=== PATIENT | female | born 1945 | race Caucasian/White ===

== ENCOUNTER 2018-10-24 13:37 | Inpatient (IN) | payer OTHER ==
--- NOTE | 2018-10-24 14:34 | EDPHY ---
H & P Smoking Status: Never smoked <Justin Lynn S - Last Filed: 10/25/18 04:36> <Kyleigh Fragoso M - Last Filed: 10/27/18 14:39> Time Seen by Provider: 10/24/18 14:08 HPI/ROS: CHIEF COMPLAINT: Shortness of breath HISTORY OF PRESENT ILLNESS: This 73-year-old woman has been in [place] just moved here from [place] a week ago. Today she presents because her oxygen saturation at dialysis was in the 80s. She is currently end-stage renal disease on dialysis with an indwelling left subclavian catheter. She had a fistula placed surgically 6 weeks ago in [place] but has had severe left arm swelling since and was diagnosed 3 weeks ago the left upper extremity DVT. At that time she was on Eliquis for atrial fibrillation and was changed to warfarin after that diagnosis. She started getting right-sided anterior and posterior sharp chest pain with respiration yesterday, and today at dialysis was noted to be severely hypoxemic and was sent here for evaluation. She did get a full dialysis run. Denies cough or fever. Denies hemoptysis. No leg swelling. No sputum production. Symptoms moderate today. REVIEW OF SYSTEMS: Eye: The daughters noted her left eyelid was a bit more swollen this morning ENT: no sore throat Cardiac: HPI Pulmonary: HPI Abdomen: no vomiting, diarrhea, abdominal pain Musculoskeletal: Left arm swelling Skin: no rash Neuro: no headache Constitutional: no fever : no urinary symptoms A comprehensive 10 point review of systems is otherwise negative aside from elements mentioned in the history of present illness. PAST MEDICAL HISTORY: Includes end-stage renal disease on dialysis, pacemaker, breast cancer, atrial fibrillation, diabetes, hypothyroid, left upper extremity DVT Social history: Here with 2 daughters and family. General Appearance: Alert and conversant, cooperative. Eyes: No scleral icterus. She has a little bit of left eyelid edema. Pupils equal reactive extraocular motion intact. Forehead wrinkles symmetrically. ENT, Mouth: Normal mucous membranes. Respiratory: Normal respiratory effort, breath sounds equal, lungs are clear to auscultation. No rales. Cardiovascular: Regular rate and rhythm. Gastrointestinal: Abdomen is soft and non tender. Neurological: Alert, face symmetric, normal motor and sensory in extremities. Skin: Warm and dry, no rashes. Musculoskeletal: Patient has 4+ left upper extremity edema. Compartments are soft although there is quite a bit of induration. No erythema or warmth. Normal left hand motor sensory and perfusion. Psychiatric: Not agitated. Emergency Department course/MDM: Patient presents afebrile but oxygen saturation is 82% on room air arc. Combined with her right-sided chest pain and known left upper extremity clot, high suspicion for pulmonary embolism. Plan for labs to include chemistry and INR, EKG, chest x-ray, left upper extremity ultrasound. Patient does not clinically appear to have facial droop. I think her left eyelid appearance is more likely due to edema. Signed out to Fouzia at 1500 with plan as follows: IV access, check INR, chest x-ray, ensure therapeutic anticoagulation prior to leaving the ED, admission hospitalist. (Justin Lynn) Constitutional: Initial Vital Signs Temperature (C) 36.4 C 10/24/18 13:41 Heart Rate 70 10/24/18 13:41 Respiratory Rate 18 10/24/18 13:41 Blood Pressure 153/87 H 10/24/18 13:41 O2 Sat (%) 82 L 10/24/18 13:41 O2 Delivery Mode Nasal Cannula O2 (L/minute) 2 Allergies/Adverse Reactions: morphine Allergy (Verified 10/24/18 13:47) Penicillins Allergy (Verified 10/24/18 13:47) Sulfa (Sulfonamide Antibiotics) Allergy (Verified 10/24/18 13:47) Home Medications: Medication Instructions Recorded Glimepiride [Amaryl 1 MG (*)] 1 mg PO DAILY 10/24/18 Herbals/Supplements -Info Only 1 ea PO DAILY 10/24/18 Hydrocodone/APAP 5/325 [[place] 1 tab PO Q6 PRN 10/24/18 5/325 (*)] Levothyroxine [Synthroid 175 mcg 175 mcg PO DAILY06 10/24/18 (*)] Pregabalin [Lyrica 100mg (*)] 100 mg PO DAILY 10/24/18 Warfarin Sodium [Coumadin 5MG (*)] 2.5 mg PO DAILY@17 10/24/18 Medical Decision Making <Justin Lynn - Last Filed: 10/25/18 04:36> - Diagnostics Imaging: Discussed imaging studies w/ restaurant kitchen manager Radiologist <Kyleigh Fragoso - Last Filed: 10/27/18 14:39> - Diagnostics EKG Interpretation: 12-lead EKG interpreted by me; official reading is in computer system. My interpretation is ventricular paced rate 70. (Justin Lynn) Other Provider: 15:00 I assumed care of this patient from Dr. Lynn at shift change, pending testing as above. 15:45 Reviewed CXR. Evidence of cardiomegaly and increased vascular markings. 16:17 Staff have been unable to obtain IV access on this patient. Patient is requesting pain medication, has documented morphine allergy. Her daughters at bedside decline Dilaudid. Plan to administer IV fentanyl, which has worked well for her in the past. IV access obtained. Plan for labs as above. 16:[address] Linda, radiologist. DVT has resolved. 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 Plan to admit. 17:15 Dr. Deleon accepts admission for hypoxia, pulmonary congestion, left upper extremity swelling, ESRD. (Kyleigh Fragoso) - Data Points Laboratory Results: Laboratory Results 10/25/18 08:30 10/25/18 05:04 Medications Given: Hydrocodone Bitart/Acetaminophen ([place] 5/325) 1 tab PO Q6 PRN PRN Reason: Pain, Moderate Stop: 11/03/18 19:39 Last Admin: 10/27/18 14:02 Dose: 1 tab Hydromorphone HCl (Dilaudid) 0.2 - 0.4 mg IVP Q4HRS PRN PRN Reason: Pain, Severe Unable to Take PO Stop: 11/03/18 18:04 Last Admin: 10/26/18 05:10 Dose: 0.2 mg Insulin Human Lispro (Humalog Lispro) 0 unit SC TIDMEAL [place] PRN Reason: Protocol Stop: 04/23/19 07:59 Last Admin: 10/27/18 14:04 Dose: Not Given Levothyroxine Sodium (Synthroid) 175 mcg PO DAILY06 [facility] Stop: 04/23/19 05:59 Last Admin: 10/27/18 05:08 Dose: 175 mcg Oxycodone/Acetaminophen (Percocet 5/325) 1 - 2 tab PO Q4 PRN PRN Reason: Pain, Severe Able to Take PO Stop: 11/05/18 18:53 Last Admin: 10/27/18 05:08 Dose: 2 tab Pregabalin (Lyrica) 100 mg PO DAILY [facility] Stop: 04/23/19 08:59 Last Admin: 10/27/18 10:05 Dose: 100 mg Warfarin Sodium (Coumadin) 2.5 mg PO DAILY@1700 [facility] Stop: 04/24/19 16:59 Last Admin: 10/26/18 20:24 Dose: Not Given Discontinued Medications Bupivacaine HCl (Sensorcaine 0.5% Vial) Confirm Administered Dose 30 ml .ROUTE .STK-MED ONE Stop: 10/26/18 14:04 Last Admin: 10/26/18 17:59 Dose: 30 ml Fentanyl (Sublimaze) 75 mcg IVP EDNOW ONE Stop: 10/24/18 16:31 Last Admin: 10/24/18 16:34 Dose: 75 mcg Fentanyl (Sublimaze) 25 - 100 mcg IVP Q5M PRN PRN Reason: PACU, IMMEDIATE Pain control Stop: 10/26/18 17:33 Last Admin: 10/26/18 19:10 Dose: 25 mcg Furosemide (Lasix Injection) 40 mg IVP ONCE ONE Stop: 10/24/18 18:47 Last Admin: 10/24/18 20:32 Dose: 40 mg Heparin Sodium (Porcine) (Heparin Sodium) Confirm Administered Dose 50,000 unit .ROUTE .STK-MED ONE Stop: 10/26/18 14:04 Last Admin: 10/26/18 17:58 Dose: 50,000 unit Heparin Sodium (Porcine) (Heparin Lock Flush) Confirm Administered Dose 2,500 unit IVP .STK-MED ONE Stop: 10/26/18 14:04 Last Admin: 10/26/18 17:57 Dose: 2,500 unit Vancomycin HCl 1 gm/ Sodium (Chloride) 250 mls @ 250 mls/hr IV ONCALL ONE Stop: 10/26/18 16:59 Last Admin: 10/26/18 15:46 Dose: 250 mls Lactated Ringer's (Lr) 1,000 mls @ 0 mls/hr IV ONCE ONE PRN Reason: KVO Stop: 10/26/18 15:23 Last Admin: 10/27/18 08:16 Dose: Not Given Sodium Chloride (Ns) 1,000 mls @ 0 mls/hr IV ONCE ONE PRN Reason: KVO Stop: 10/26/18 15:48 Last Admin: 10/26/18 15:55 Dose: 1,000 mls Iopamidol (Isovue-M 300) Confirm Administered Dose 30 ml .ROUTE .STK-MED ONE Stop: 10/26/18 17:30 Last Admin: 10/26/18 18:06 Dose: 30 ml Iopamidol (Isovue-M 300) Confirm Administered Dose 30 ml .ROUTE .STK-MED ONE Stop: 10/26/18 17:35 Last Admin: 10/26/18 18:07 Dose: 30 ml Lidocaine HCl (Lidocaine Hcl 1%) Confirm Administered Dose 300 mg .ROUTE .STK- MED ONE Stop: 10/26/18 14:04 Last Admin: 10/26/18 18:45 Dose: Not Given Povidone Iodine (Betadine) Confirm Administered Dose 30 leia TP .STK-MED ONE Stop: 10/26/18 18:26 Last Admin: 10/26/18 18:26 Dose: 30 leia Sodium Bicarbonate (Sodium Bicarbonate) Confirm Administered Dose 50 meq .ROUTE .STK-MED ONE Stop: 10/26/18 14:04 Last Admin: 10/26/18 18:46 Dose: Not Given Warfarin Sodium (Coumadin) 2.5 mg PO DAILY@17 [facility] Stop: 04/22/19 18:59 Last Admin: 10/24/18 19:53 Dose: 2.5 mg Point of Care Test Results: Chemistry 10/25/18 10/25/18 10/24/18 12:11 08:38 19:12 POC Glucose 166 mg/dL H mg/dL 115 mg/dL H mg/dL 101 mg/dL H mg/dL (70-100) (70-100) (70-100) POC Troponin I 10/24/18 17:23 POC Glucose POC Troponin I 0.02 ng/mL ng/mL (0.00-0.08) Departure <Justin Lynn S - Last Filed: 10/25/18 04:36> <Kyleigh Fragoso - Last Filed: 10/27/18 14:39> - Departure Disposition: [facility] Inpatient Acute Clinical Impression: Swelling of left upper extremity, Hypoxemia, ESRD (end stage renal disease) Condition: Fair
--- NOTE | 2018-10-24 14:37 | CPEKG ---
Test Reason : OPEN Blood Pressure : / mmHG Vent. Rate : 070 BPM Atrial Rate : 000 BPM P-R Int : 452 ms QRS Dur : 169 ms QT Int : 466 ms P-R-T Axes : 000 -61 112 degrees QTc Int : 503 ms Ventricular-paced complexes Confirmed by Justin Lynn ([id number]) on 10/24/2018 2:36:17 PM Referred By: Justin Lynn Confirmed By:Justin Lynn
[2018-10-24] MEDS ORDERED: fentaNYL 100 MCG/2 ML INJ IVP ONE (16:30)
[2018-10-24] MEDS ORDERED: ALTEPLASE 2 MG VIAL IVP PRN (16:45)
[2018-10-24 17:32] LABS: PLATELET COUNT 160 10^3/uL (150-400)
[2018-10-24 17:43] LABS: INR 1.41 (0.83-1.16); PROTIME(PATIENT) 17.4 SEC (12.0-15.0)
[2018-10-24] MEDS ORDERED: ONDANSETRON 4 MG/2 ML VIAL IVP PRN (18:05)
[2018-10-24] MEDS ORDERED: HYDROmorphONE/DILAUDID 1 MG/ML INJ IVP PRN (18:05)
[2018-10-24] MEDS ORDERED: ONDANSETRON DISINTEGRATING 4 MG TAB PO PRN (18:05)
[2018-10-24] MEDS ORDERED: oxyCODONE IR 5 MG TAB PO PRN (18:05)
[2018-10-24] MEDS ORDERED: ACETAMINOPHEN 325 MG TAB PO PRN (18:05)
[2018-10-24] MEDS ORDERED: D50W 25 GM/50 ML SYR IVP PRN (18:14)
--- NOTE | 2018-10-24 18:14 | PDGENHP ---
<Lynn Armando - Last Filed: 10/24/18 18:59> History and Physical - Chief Complaint Shortness of breath - History of Present Illness HPI: 73 y/o female who recently moved from [place] on Tuesday presents to the emergency room s/p receiving dialysis due to shortness of breath and oxygen saturation in the 80s on room air. Reportedly, she experienced right-sided anterior and posterior chest cramping with inspiration but those symptoms have resolved. She received her full dialysis today and noted dyspneic upon exertion , alleviated with rest. Six weeks ago in [place], she had a left arm fistula placed. Three weeks ago, her left arm became very swollen and painful - she was diagnosed with a LUE DVT. She was on Eliquis initially for her atrial fibrillation but changed to warfarin. Last Tuesday, she reports her INR was 2.3. Denies nausea, vomiting, diarrhea, fever and chills. Endorses lightheadedness. She is being admitted for further diagnostic work-up and monitoring. Past Medical History 1. ESRD on Dialysis TuThSa (left indwelling subclavian catheter) 2. Atrial fibrillation 3. Pacemaker 4. Diabetes 5. Hypothyroidism 6. Left DVT UE - today's doppler reveal no DVT and fistula is patent. 7. Breast Cancer Past Surgical History 1. Thyroidectomy 2. Bilateral mastectomy s/p breast cancer 3. Multiple abdominal surgeries 4. Right knee replacements x 2 (first surgery became infected, second surgery to replace hardware with implanted "antibiotic beads" approximately 1.5-2 years ago - "antibiotics beads" dislodged and damaged her kidneys to such an extent that she now is ESRD) Social 1. Moved from [place] to [place], [place] to be closer to her two daughters who were at bedside 2. Denies illicit drug use or tobacco use. Denies alcohol use. History Information - Allergies/Home Medication List Allergies/Adverse Reactions: morphine Allergy (Verified 10/24/18 13:47) Penicillins Allergy (Verified 10/24/18 13:47) Sulfa (Sulfonamide Antibiotics) Allergy (Verified 10/24/18 13:47) Home Medications: Glimepiride [Amaryl 1 MG (*)] 1 mg PO DAILY 10/24/18 [Last Taken 10/24/18] Herbals/Supplements -Info Only 1 ea PO DAILY 10/24/18 [Last Taken Unknown] Hydrocodone/APAP 5/325 [[place] 5/325 (*)] 1 tab PO Q6 PRN 10/24/18 [Last Taken Unknown] Levothyroxine [Synthroid 175 mcg (*)] 175 mcg PO DAILY06 10/24/18 [Last Taken 07:00] Pregabalin [Lyrica 100mg (*)] 100 mg PO DAILY 10/24/18 [Last Taken 10/24/18] Warfarin Sodium [Coumadin 5MG (*)] 2.5 mg PO DAILY@17 10/24/18 [Last Taken 10/23] I have personally reviewed and updated: family history, medical history, social history, surgical history Past Medical History: See HPI list - Surgical History Additional surgical history: See HPI list - Family History Positive for: non-pertinent - Social History Smoking Status: Never smoked Alcohol Use: None Drug Use: None Review of Systems Review of Systems: ROS: 10pt was reviewed & negative except for what was stated in HPI & below Constitutional: Reports: no symptoms EENMT: Reports: no symptoms Cardiac: Reports: chest pain, lightheadedness Respiratory: Reports: shortness of breath Gastrointestinal: Reports: no symptoms Genitourinary: Reports: no symptoms Muscolosketal: Reports: muscle pain (LUE) Skin: Reports: change in color (LUE) Neurological: Reports: no symptoms Hematologic/Lymphatic: Reports: blood clots Immunologic/Allergy: Reports: other (See allergy list) Physical Exam Physical Exam: Lab data and imaging were reviewed. Case discussed with admitting physician, Dr. Nicolás Carlos. EKG: ventricular-paced CXR: Mild cardiomegaly with pulmonary venous congestion, no focal infiltrate or peripheral interstitial edema BUN/Cr: 15/1.9 Troponin 2 hrs apart: 0.035 --> 0.02 INR: 1.41 Temp Pulse Resp BP Pulse Ox 36.9 C 70 19 147/72 H 98 10/24/18 18:04 10/24/18 18:04 10/24/18 18:04 10/24/18 18:04 10/24/18 18:04 O2 (L/minute) 2.5 Constitutional: no apparent distress, appears nourished, obese Eyes: PERRL, anicteric sclera, EOMI Ears, Nose, Mouth, Throat: moist mucous membranes, hearing normal, ears appear normal, no oral mucosal ulcers Cardiovascular: systolic murmur, irregularly irregular Peripheral Pulses: 1+: dorsalis-pedis (R) (Radial +1), dorsalis-pedis (L) ( Unable to palpate radial/brachial pulse; L fistula bruit heard, thrill not felt) Respiratory: no respiratory distress, no rales or rhonchi, clear to auscultation Gastrointestinal: normoactive bowel sounds, soft, non-tender abdomen, no palpable masses Genitourinary: no bladder fullness, no bladder tenderness Skin: erythema, induration (LUE; quite edematous 3+ pitting, indurated, unable to palpate a pulse) Musculoskeletal: full muscle strength, no muscle tenderness, normal joint ROM, no joint effusions Neurologic: AAOx3, sensation intact bilaterally, CN II-XII Intact Psychiatric: interacting appropriately, not anxious, not encephalopathic, thought process linear Lymph, Heme, Immunologic: no cervical LAD, no supraclavicular LAD Lab Data & Imaging Review 10/24/18 17:17 10/24/18 15:19 WBC 9.19 10^3/uL (3.80-9.50) 10/24/18 17:17 RBC 3.52 10^6/uL (4.18-5.33) L 10/24/18 17:17 Hgb 11.0 g/dL (12.6-16.3) L 10/24/18 17:17 Hct 35.8 % (38.0-47.0) L 10/24/18 17:17 MCV 101.7 fL (81.5-99.8) H 10/24/18 17:17 MCH 31.3 pg (27.9-34.1) 10/24/18 17:17 MCHC 30.7 g/dL (32.4-36.7) L 10/24/18 17:17 RDW 14.6 % (11.5-15.2) 10/24/18 17:17 Plt Count 160 10^3/uL (150-400) 10/24/18 17:17 MPV 9.9 fL (8.7-11.7) 10/24/18 17:17 Neut % (Auto) 75.3 % (39.3-74.2) H 10/24/18 17:17 Lymph % (Auto) 12.1 % (15.0-45.0) L 10/24/18 17:17 Maury % (Auto) 7.9 % (4.5-13.0) 10/24/18 17:17 Eos % (Auto) 2.6 % (0.6-7.6) 10/24/18 17:17 Baso % (Auto) 0.8 % (0.3-1.7) 10/24/18 17:17 Nucleat RBC Rel Count 0.0 % (0.0-0.2) 10/24/18 17:17 Absolute Neuts (auto) 6.92 10^3/uL (1.70-6.50) H 10/24/18 17:17 Absolute Lymphs (auto) 1.11 10^3/uL (1.00-3.00) 10/24/18 17:17 Absolute Monos (auto) 0.73 10^3/uL (0.30-0.80) 10/24/18 17:17 Absolute Eos (auto) 0.24 10^3/uL (0.03-0.40) 10/24/18 17:17 Absolute Basos (auto) 0.07 10^3/uL (0.02-0.10) 10/24/18 17:17 Absolute Nucleated RBC 0.00 10^3/uL (0-0.01) 10/24/18 17:17 Immature Gran % 1.3 % (0.0-1.1) H 10/24/18 17:17 Immature Gran # 0.12 10^3/uL (0.00-0.10) H 10/24/18 17:17 PT 17.4 SEC (12.0-15.0) H 10/24/18 17:17 INR 1.41 (0.83-1.16) H 10/24/18 17:17 Sodium 135 mEq/L (135-145) 10/24/18 15:19 Potassium 3.7 mEq/L (3.5-5.2) 10/24/18 15:19 Chloride 100 mEq/L (97-110) 10/24/18 15:19 Carbon Dioxide 27 mEq/l (22-31) 10/24/18 15:19 Anion Gap 8 mEq/L (6-14) 10/24/18 15:19 BUN 15 mg/dL (7-23) 10/24/18 15:19 Creatinine 1.9 mg/dL (0.6-1.0) H 10/24/18 15:19 Estimated GFR 26 10/24/18 15:19 Glucose 92 mg/dL (70-100) 10/24/18 15:19 Calcium 7.7 mg/dL (8.5-10.4) L 10/24/18 15:19 POC Troponin I 0.02 ng/mL (0.00-0.08) 10/24/18 17:23 Troponin I 0.035 ng/mL (0.000-0.034) H 10/24/18 15:19 Assessment & Plan Plan: 73 y/o female with history of ESRD on Dialysis presenting to the emergency room after experiencing hypoxemia in the 80s room air during her dialysis treatment. She was able to complete dialysis in full. Dyspneic upon exertion. She was 82% when she presented to the ER and is now on 2.5 L NC oxygen sating at 99%. She recently moved from [place], flew here, to be closer to her daughters. She does not fly often. She was diagnosed with a LUE DVT after receiving a fistula. She is anticoagulated with warfarin. Afebrile and not tachycardic currently. #Acute hypoxemic respiratory failure: considering PE vs fluid overload -BNP 12,000, CXR indicate fluid - one time lasix IVP tonight and will reassess tomorrow. If no improvement, may consider VQ scan or additional lasix doses. -Cont tele and pulse ox monitoring -Possible echo tonight or tomorrow -Checking one more trop tonight #Diabetes: checking A1c. Holding glimepiride. Initiated ISS while in hospital. #Atrial fibrillation/pacemaker: anticoagulated, continue warfarin. Cont tele monitoring #ESRD: consulted nephrology. Did not speak with Dr. Flannery but consulted to set up dialysis on should she still be in the hospital. Diet: Renal Code: Full Dispo: Admit to obs VTE ppx: warfarin, SCDs <Nicolás Carlos - Last Filed: 10/24/18 19:44> History and Physical - History of Present Illness Review of Systems Review of Systems: Physical Exam Physical Exam: Temp Pulse Resp BP Pulse Ox 37.0 C 70 20 152/78 H 97 10/24/18 18:48 10/24/18 18:48 10/24/18 18:48 10/24/18 18:48 10/24/18 18:48 O2 (L/minute) 2 Lab Data & Imaging Review 10/24/18 17:17 10/24/18 15:19 WBC 9.19 10^3/uL (3.80-9.50) 10/24/18 17:17 RBC 3.52 10^6/uL (4.18-5.33) L 10/24/18 17:17 Hgb 11.0 g/dL (12.6-16.3) L 10/24/18 17:17 Hct 35.8 % (38.0-47.0) L 10/24/18 17:17 MCV 101.7 fL (81.5-99.8) H 10/24/18 17:17 MCH 31.3 pg (27.9-34.1) 10/24/18 17:17 MCHC 30.7 g/dL (32.4-36.7) L 10/24/18 17:17 RDW 14.6 % (11.5-15.2) 10/24/18 17:17 Plt Count 160 10^3/uL (150-400) 10/24/18 17:17 MPV 9.9 fL (8.7-11.7) 10/24/18 17:17 Neut % (Auto) 75.3 % (39.3-74.2) H 10/24/18 17:17 Lymph % (Auto) 12.1 % (15.0-45.0) L 10/24/18 17:17 Maury % (Auto) 7.9 % (4.5-13.0) 10/24/18 17:17 Eos % (Auto) 2.6 % (0.6-7.6) 10/24/18 17:17 Baso % (Auto) 0.8 % (0.3-1.7) 10/24/18 17:17 Nucleat RBC Rel Count 0.0 % (0.0-0.2) 10/24/18 17:17 Absolute Neuts (auto) 6.92 10^3/uL (1.70-6.50) H 10/24/18 17:17 Absolute Lymphs (auto) 1.11 10^3/uL (1.00-3.00) 10/24/18 17:17 Absolute Monos (auto) 0.73 10^3/uL (0.30-0.80) 10/24/18 17:17 Absolute Eos (auto) 0.24 10^3/uL (0.03-0.40) 10/24/18 17:17 Absolute Basos (auto) 0.07 10^3/uL (0.02-0.10) 10/24/18 17:17 Absolute Nucleated RBC 0.00 10^3/uL (0-0.01) 10/24/18 17:17 Immature Gran % 1.3 % (0.0-1.1) H 10/24/18 17:17 Immature Gran # 0.12 10^3/uL (0.00-0.10) H 10/24/18 17:17 PT 17.4 SEC (12.0-15.0) H 10/24/18 17:17 INR 1.41 (0.83-1.16) H 10/24/18 17:17 Sodium 135 mEq/L (135-145) 10/24/18 15:19 Potassium 3.7 mEq/L (3.5-5.2) 10/24/18 15:19 Chloride 100 mEq/L (97-110) 10/24/18 15:19 Carbon Dioxide 27 mEq/l (22-31) 10/24/18 15:19 Anion Gap 8 mEq/L (6-14) 10/24/18 15:19 BUN 15 mg/dL (7-23) 10/24/18 15:19 Creatinine 1.9 mg/dL (0.6-1.0) H 10/24/18 15:19 Estimated GFR 26 10/24/18 15:19 Glucose 92 mg/dL (70-100) 10/24/18 15:19 POC Glucose 101 mg/dL (70-100) H 10/24/18 19:12 Calcium 7.7 mg/dL (8.5-10.4) L 10/24/18 15:19 POC Troponin I 0.02 ng/mL (0.00-0.08) 10/24/18 17:23 Troponin I 0.035 ng/mL (0.000-0.034) H 10/24/18 15:19 NT-Pro-B Natriuret Pep 04712 pg/mL (0-125) H 10/24/18 17:17 Assessment & Plan Assessment: ESRD (end stage renal disease) (Acute) Hypoxemia (Acute) Swelling of left upper extremity (Acute) Plan: Chart reviewed, patient personally examined and case discussed with Kyleigh Armando NP. I agree with her assessment and plan above. Please see my separate note for additional details.
[2018-10-24] MEDS ORDERED: FUROSEMIDE 40 MG/4 ML VIAL IVP ONE (18:46)
[2018-10-24] MEDS ORDERED: WARFARIN SODIUM 5 MG TAB PO SCH (19:00)
--- NOTE | 2018-10-24 19:43 | HOSPPROG ---
Hospitalist Progress Note Assessment/Plan: Case discussed with Kyleigh Armando [employer]LET[employer]ENTS SCORER and I agree with plan outlined in her note with following exceptions: Briefly, 73yo F with ESRD on HD via Cabrera catheter, atrial fibrillation, recent LUE DVT on warfarin who just moved to [place] 4 days ago presents with shortness of breath. Her symptoms started on arrival to [place], where she moved from [place] to be closer to her daughter. She went to dialysis this afternoon and was noted to be hypoxic into the 80s so was sent to the ED. Exam with mild bibasilar crackles. BNP elevated at 12k. CXR consistent with mild pulmonary edema. Her INR was 1.4. Doppler US of left arm, which is swollen, shows that DVT has resolved. 1. Acute hypoxia: Suspect driven by altitude and mild pulmonary edema. We will give a dose of IV lasix this evening (she still makes urine) and assess response. I have ordered an echocardiogram. Considered PE but have alternate explanations; could consider V/Q scan if worsening. May need supplemental oxygen at discharge. 2. ESRD: Failed RUE AV fistula and recently created LUE AV fistula with clot. Dialyzing via Cabrera catheter. Alert nephrology of admission in AM. 3. Atrial fibrillation: Rate controlled on admit. [id number] at least 3, continue warfarin. 4. Indeterminate troponin: Very mild. Likely demand driven by volume overload. Down-trending. 5. Anemia: Related to renal disease. 6. SSS s/p pacemaker 7. Diabetes: SSI Dispo: Admit under observation Objective: Vital Signs Temp Pulse Resp BP Pulse Ox 37.0 C 70 20 152/78 H 97 10/24/18 18:48 10/24/18 18:48 10/24/18 18:48 10/24/18 18:48 10/24/18 18:48 Laboratory Results 10/24/18 17:17 PT 17.4 SEC (12.0-15.0) H 10/24/18 17:17 INR 1.41 (0.83-1.16) H 10/24/18 17:17 ICD10 Worksheet Patient Problems: Problems Problem Status Onset ESRD (end stage renal disease) Acute Hypoxemia Acute Swelling of left upper extremity Acute
[2018-10-24] MEDS: HYDROCODONE/APAP 5/325 TAB PO PRN (20:38)
[2018-10-25] MEDS: HYDROCODONE/APAP 5/325 TAB PO PRN ×4 (03:22→21:57)
[2018-10-25] MEDS: LEVOTHYROXINE 175 MCG TAB PO SCH (05:09)
[2018-10-25 06:18] LABS: INR 1.49 (0.83-1.16); PROTIME(PATIENT) 18.2 SEC (12.0-15.0)
--- NOTE | 2018-10-25 08:43 | HOSPPROG ---
Hospitalist Progress Note Assessment/Plan: Rose is a73yo F with ESRD on HD via Cabrera catheter, atrial fibrillation, recent LUE DVT on warfarin who just moved to [place] 4 days ago presents with shortness of breath. She is from the [place] area. First encounter, chart reviewed * Acute hypoxia -likely due to high altitude and pulmonary edema -echo shows right atrial enlargement and left atrium is severely dilated, will ask cards to see- etiology of enlargement is likely from the afib *ESRD - Failed RUE AV fistula and recently created LUE AV fistula with clot -Dialyzing via Cabrera catheter -dialysis tomorrow * Atrial fibrillation, Rate controlled -INR is subtherapeutic -will link her into the Coumadin clinic -will hold Coumadin and place her on Lovenox treatment dose sq, this can be stopped if there is any intervention. *Indeterminate troponin -minimally elevated, demand ischemia from the above * Anemia: Related to renal disease. * SSS s/p pacemaker * Diabetes: SSI * left arm swelling, severe -ultrasound shows AV fistula that is widely patent -high-grade stenosis left innominate vein causing decreased outflow fro the left arm arterial venous fistula *plan -will ask Dr De Leon to see, reviewed her care w Dr Browning. She will require another midnight stay to address all the above. Subjective: Rose is tearful and frustrated about her health. She is not c/o pain. Objective: Vital Signs Temp Pulse Resp BP Pulse Ox 36.7 C 70 20 130/74 H 97 10/25/18 03:23 10/25/18 03:23 10/25/18 03:23 10/25/18 03:23 10/25/18 03:23 Laboratory Results 10/25/18 05:04 10/24/18 10/25/18 10/26/18 05:59 05:59 05:59 Intake Total 200 Balance 200 PT 18.2 SEC (12.0-15.0) H 10/25/18 05:04 INR 1.49 (0.83-1.16) H 10/25/18 05:04 - Physical Exam Constitutional: appears nourished, obese, uncomfortable Eyes: PERRL Ears, Nose, Mouth, Throat: hearing normal Cardiovascular: irregularly irregular Respiratory: no respiratory distress, reduced air movement Skin: warm, other (left arm warm, but has significant swelling, skin is tight, has pulses and can feel the AV graft) Neurologic: AAOx3 Psychiatric: interacting appropriately ICD10 Worksheet Patient Problems: Problems Problem Status Onset ESRD (end stage renal disease) Acute Hypoxemia Acute Swelling of left upper extremity Acute
[2018-10-25 08:50] LABS: PLATELET COUNT 150 10^3/uL (150-400)
[2018-10-25] MEDS: PREGABALIN 100 MG CAP PO SCH (08:54)
[2018-10-25] MEDS: INSULIN LISPRO 100 UNIT/ML SC SCH ×3 (09:06→18:17)
--- NOTE | 2018-10-25 11:47 | ECHO ---
[email or web address] [address] [address] Main: [phone] Fax: Transthoracic Echocardiogram Name: ADIN MCNALLY MR#: [id number] Study Date: 10/25/2018 Study Time: 10:36 AM Date of : 1945 Age: 73 year(s) Height: 167.6 cm (66 in.) Weight: 90.72 kg (200 lb.) BSA: 2 m2 Gender: Female Examination: Echo Indication: eval valves, ventricular function Image Quality: Adequate Contrast: Requested by: Nicolás Carlos BP: 137 mmHg/95 mmHg Heart Rate: Rhythm: Indication: eval valves, ventricular function Procedure Staff Skin Lifter Bacon: Jessica Mujica RD Reading Physician: Rod Alcaraz MD Requesting Provider: Conclusions: No pericardial effusion. Ejection fraction 54%. Pacemaker in the right heart. Biatrial enlargement. Mild to moderate mitral regurgitation. Mild aortic regurgitation. Moderate tricuspid regurgitation with elevated right ventricular systolic pressure 48 mm of mercury. Measurements: Chambers Valvular Assessment AV/MV Valvular Assessment TV/PV Normal Normal Normal Name Value Range Name Value Range Name Value Range Ao Sowmya (2D): 2.9 cm (1.4 cm-2.6 AV Vmax: 2.45 m/s (1 m/s-1.7 TR Vmax: 3.26 mm/s ( - ) cm) m/s) TR PGmax: 43 mmHg ( - ) IVSd (2D): 1.0 cm (0.6 cm-1.1 AV maxP mmHg ( - ) syst. PAP: 48 mmHg ( - ) cm) AV meanP mmHg ( - ) PV Vmax: 1.14 m/s (0.6 m/s-0.9 LVDd (2D): 5.1 cm (3.9 cm-5.3 MILAD (VTI): 1.0 cm ( - ) m/s) cm) MV E Vmax: 1.19 m/s ( - ) PV PGmax: 5 mmHg ( - ) LVDs (2D): 3.2 cm (2.1 cm-4 MV PHT: 0.067 s ( - ) cm) MVA (PHT): 3.3 s ( - ) LVPWd (2D): 1.1 cm ( - ) LVOTd 1.9 cm 1.9 cm mm LVEF (MOD4): 54 % (>=55 %) RVDd(2D): 3.7 cm (1.9 cm-3.8 cmmm) Continued Measurements: Chambers Valvular Assessment AV/MV Valvular Assessment TV/PV Name Value Name Value Name Value LADs: 4.5 cm MV DecTime: 246 m/s CVP (est.): 5 mmHg LADs Lon.1 cm LA Area: 34.4 cm2 LA Volume: 125 ml Patient: ADIN MCNALLY Study Date: 10/25/2018 Page 1 of 2 10:36 AM LA Volume Index: 62.5 ml/m2 RA Area: 25.8 cm2 Additional Vessels Name Value Ao Ascendin.6 cm Findings: Left Ventricle: Normal size left ventricle. No LV hypertrophy. Normal global systolic LV function. EF is 54 %. No regional wall motion abnormality. Right Ventricle: Normal size right ventricle. Normal RV function. There is a pacemaker lead noted in the right ventricle. Left Atrium: The left atrium is severely dilated. Right Atrium: Right atrial enlargement. Mitral Valve: The mitral valve is normal in appearance and function. Mild to moderate mitral regurgitation. No mitral stenosis is present. Aortic Valve: The aortic valve is tri-leaflet. Aortic sclerosis is present. Mild aortic valve regurgitation is present. Mild calcific aortic valve stenosis. Tricuspid Valve: The tricuspid valve is normal in appearance and function. Moderate tricuspid regurgitation is present. The pulmonary artery pressure is moderately increased. Right ventricular systolic pressure measures 48mmHg. Pulmonic Valve: The pulmonic valve is normal in appearance and function. Trivial pulmonic valve regurgitation. Aorta: The aorta is normal. Normal size aortic root measuring 2.9 cm. Normal size ascending aorta measuring 3.6 cm. IVC: The IVC is normal sized. Pericardium: No pericardial effusion. (No Signature Object) Patient: ADIN MCNALLY Study Date: 10/25/2018 Page 2 of 2 10:36 AM [id number]
--- NOTE | 2018-10-25 14:49 | GCON ---
[f rep st] CONSULTATION DATE OF CONSULTATION: 10/25/2018 REASON FOR CONSULTATION: Opinion regarding end-stage kidney failure. HISTORY OF PRESENT ILLNESS: August is a very pleasant 73-year-old female who was living in [place]; however, she and her are getting , and she moved to [place] to be closer with her 2 daughters and grandchildren. Ms. Koch arrived just this past week. She had dialysis at the [facility]. Was noted to have a markedly edematous left arm which is where her AV fistula has been placed. She was sent to the emergency department after dialysis yesterday for furt her evaluation and management. Currently, she says she feels reasonably okay. She has not been having fevers, chills, nausea, vomit ing, chest pain. She does have some shortness of breath, [place] She has not had hemoptysis, hematemesis, epistaxis, abdominal pain, diarrhea, constipatio n, melena, hematochezia, blurry vision, double vision, headache, orthopnea, paroxysmal nocturnal dysp agatha, palpitations or syncope. PAST MEDICAL HISTORY: Significant for: 1. End-stage kidney failure on 3 times weekly dialysis. It appears that her end-stage kidney failur e is due to acute kidney injury that did not resolve after sepsis syndrome. 2. Diabetes mellitus type 2. 3. Hypothyroidism. 4. Recent AV fistula placement in her left arm. 5. Failed AV fistula in the right arm. 6. Anticoagulation for a history of DVT. 7. Neuropathic pain. 8. Bilateral mastectomy. 9. A history of breast cancer. 10. Status post chest radiation. 11. Status post pacemaker initially on the left and subsequently placed on the right. 12. Anemia. 13. Right total knee arthroplasty. ALLERGIES: Penicillin, morphine and sulfa. MEDICATIONS: 1. Warfarin 2.5 mg daily. 2. Glimepiride 1 mg daily. 3. Synthroid 175 mcg daily. 4. Lyrica 100 mg daily. FAMILY HISTORY: Not contributory. SOCIAL HISTORY: She denies tobacco, alcohol, intravenous or recreational drugs. She recently moved from [place] to be closer to family. REVIEW OF SYSTEMS: A complete 12-point review of systems was performed. Pertinent positives and neg atives as per the previous sections. PHYSICAL EXAMINATION: VITAL SIGNS: Blood pressure 137/95, pulse 70, respirations 18, temperature 36 .7. GENERAL: She is awake, alert, cooperative, in no acute distress. HEENT: Pupils are reactive t o light. Extraocular movements are intact. Mucous membranes are moist. NECK: Thick. No lymphaden opathy. HEART: Regular. Grade 1/6 systolic murmur. No rub, no S3. LUNGS: No rales, rhonchi or w heezes. ABDOMEN: Bowel sounds are positive. She is obese, nontender, nondistended. EXTREMITIES: Positive for edema in her lower extremities bilaterally. Her right upper extremity has minimal edema . Her left upper extremity is massively edematous with a developing left upper arm arteriovenous fis per that has a good bruit and thrill. She has a tunneled hemodialysis catheter in her left chest as well. LABORATORY: Serum sodium 136, potassium 3.9, chloride 104, CO2 21, BUN 20, creatinine 2.5, glucose 9 6, calcium 7.3. Troponin 0.034. BNP 12,000. Hemoglobin A1c 6.2. WBC 8, hemoglobin 10.5, hematocri t 34, platelet count 150,000. INR 1.40. IMPRESSION: 1. End-stage kidney failure on 3 times weekly dialysis, recently moved from [place] to [place]. 2. Shortness of breath. Part of it likely is volume overload. 3. Hypertension, which is under decent control. 4. Massively edematous left upper arm, which is the arm of her new AV fistula that was placed in mid August 2018, it is also the side that her tunneled hemodialysis catheter is placed. Also, she had a pacemaker on that side for 10 years. RECOMMENDATIONS: 1. Will plan on doing dialysis tomorrow. 2. I have discussed things with the Hospital Service, Surgery will be coming by to take a look at he r arm and fistula. She may need a fistulogram, she may need a look at her central vasculature, I danii pect that she has some her blockage due to her tunneled dialysis catheter, also she could have some s carring from her pacemaker that was on that side for 10 years. Thank you for allowing me to participate in the care of your patient, Rose Koch. If there are an y questions, please do not hesitate to contact us. We will be following along with you. /[id number]/MODL
--- NOTE | 2018-10-25 15:18 | SOAPPROG ---
JI Progress Note Assessment/Plan: Assessment/Plan: 73 Y F c ESRD on HD, afib, s/p AVF creation in [place] 6 weeks ago, s/p DVT three weeks ago now on coumadin, +LUE swelling since Decemeber, now worsened in last 24 hours. Consult note to follow. US showing stenosis of innominate vein. AVF is patent and no DVT present now. Suspect stenosis could be related to tunneled L neck catheter. Plan to have HD, then plan to remove neck catheter. Will need another catheter until AVF matures. This complicated by R pacemaker with subclavian wires. Per Dr. De Leon, can try for IJ access on right side. If not possible, may need femoral access. May still need IR intervention with venoplasty and possibly stent after removal of neck catheter to improve venous outflow of her arterialized LUE. 10/25/18 15:13 Objective: Vital Signs Temp Pulse Resp BP Pulse Ox 36.8 C 71 18 142/85 H 94 10/25/18 12:00 10/25/18 12:00 10/25/18 12:00 10/25/18 12:00 10/25/18 12:00 Laboratory Results 10/25/18 08:30 10/25/18 05:04 10/24/18 10/25/18 10/26/18 05:59 05:59 05:59 Intake Total 200 Balance 200 PT 18.2 SEC (12.0-15.0) H 10/25/18 05:04 INR 1.49 (0.83-1.16) H 10/25/18 05:04 ICD10 Worksheet Patient Problems: Problems Problem Status Onset ESRD (end stage renal disease) Acute Hypoxemia Acute Swelling of left upper extremity Acute
--- NOTE | 2018-10-25 16:14 | ASMTCMCOM ---
CM Note CM Note Notes: Pt is a 73 y/o female admitted for shortness of breath. Pt recently relocated from [place] to be closer to her daughters and grandchildren. Pt is currently getting dialysis at [facility]. Pt recieves dialysis , and Tuesday 8:05AM. Nephrology is following this case. Needs are TBD at this time. No therapies ordered. CM to follow. Plan: TBD Date Signed: 10/25/2018 04:13 PM Electronically Signed By:SHAE Medina
--- NOTE | 2018-10-25 16:36 | PDCARCONS ---
Cardiology Consult Reason for Consult: Atrial Fibrillation. Biatrial enlargement Chief Complaint: Short of Breath on admission Requesting Physician: Glenny Lawson [facility]- Hospitalist History of Present Illness: Rose recently moved from [place] to [facility] on Tuesday10/21/18 to be near her daughters. She has history of Atrial Fibrillation, End stage Renal Disease, and had dialysis on Tuesday10/24/18 and became very SOB after the dialysis. She did have a brief episode of chest cramp-like pain briefly that did subside quickly. She had a Left arm fistula placed in [place] 6 weeks ago for dialysis and 3 weeks ago developed a Left upper arm DVT while on Eliquis. She was then switched to Warfarin for anticoagulation. Her Left arm remains markedly swollen. She is being followed by Nephrology, and Vascular Surgery has been asked to consult. At time of my visit she is comfortable with no SOB , chest pain, or dizziness/lightheadedness. History Information - Allergies/Home Medication List Allergies/Adverse Reactions: morphine Allergy (Verified 10/24/18 13:47) Penicillins Allergy (Verified 10/24/18 13:47) Sulfa (Sulfonamide Antibiotics) Allergy (Verified 10/24/18 13:47) Home Medications: Glimepiride [Amaryl 1 MG (*)] 1 mg PO DAILY 10/24/18 [Last Taken 10/24/18] Herbals/Supplements -Info Only 1 ea PO DAILY 10/24/18 [Last Taken Unknown] Hydrocodone/APAP 5/325 [Plainfield 5/325 (*)] 1 tab PO Q6 PRN 10/24/18 [Last Taken Unknown] Levothyroxine [Synthroid 175 mcg (*)] 175 mcg PO DAILY06 10/24/18 [Last Taken 07:00] Pregabalin [Lyrica 100mg (*)] 100 mg PO DAILY 10/24/18 [Last Taken 10/24/18] Warfarin Sodium [Coumadin 5MG (*)] 2.5 mg PO DAILY@17 10/24/18 [Last Taken 10/23] I have personally reviewed and updated: family history, medical history, social history, surgical history Past Medical History: - Past Medical History atrial fibrillation, diabetes type 2, ESRD Additional medical history: Pacemaker. Left upper arm DVT. Breast Cancer. Hypothyroidism - Surgical History Reports: mastectomy (Bilateral s/p Breast Cancer), thyroid surgery Additional surgical history: Right knee replacement x 2 - Social History Smoking Status: Never smoked Alcohol Use: None Drug Use: None Cardiac History - Cardiac History Past Cardiac History: PACEMAKER, OTHER (Atrial Fibrillation) Cardiac Risk Factors: diabetes mellitus, age > 65 Age in Years: 65-74 Sex: Female Congestive Heart Failure History: No Stroke/TIA/Thromboembolism History: Yes Vascular Disease History: Yes Diabetes Mellitus: Yes Physical Exam Physical Exam: Temp Pulse Resp BP Pulse Ox 36.8 C 71 18 142/85 H 94 10/25/18 12:00 10/25/18 12:00 10/25/18 12:00 10/25/18 12:00 10/25/18 12:00 O2 (L/minute) 2 Constitutional: no apparent distress Eyes: PERRL Ears, Nose, Mouth, Throat: hearing normal, ears appear normal Cardiovascular: regular rate and rhythym, systolic murmur, edema (left arm swelling), No JVD Peripheral Pulses: 2+: carotid (R), carotid (L), dorsalis-pedis (R), dorsalis- pedis (L) Respiratory: no respiratory distress, reduced air movement, No respiratory distress Gastrointestinal: soft, non-tender abdomen Skin: warm Neurologic: AAOx3, No numbness Psychiatric: not anxious Lab and Imaging 10/27/18 04:45 10/27/18 04:45 WBC 7.98 10^3/uL (3.80-9.50) 10/25/18 08:30 RBC 3.36 10^6/uL (4.18-5.33) L 10/25/18 08:30 Hgb 10.5 g/dL (12.6-16.3) L 10/25/18 08:30 Hct 34.3 % (38.0-47.0) L 10/25/18 08:30 MCV 102.1 fL (81.5-99.8) H 10/25/18 08:30 MCH 31.3 pg (27.9-34.1) 10/25/18 08:30 MCHC 30.6 g/dL (32.4-36.7) L 10/25/18 08:30 RDW 14.6 % (11.5-15.2) 10/25/18 08:30 Plt Count 150 10^3/uL (150-400) 10/25/18 08:30 MPV 9.9 fL (8.7-11.7) 10/25/18 08:30 Neut % (Auto) 73.2 % (39.3-74.2) 10/25/18 08:30 Lymph % (Auto) 13.7 % (15.0-45.0) L 10/25/18 08:30 Morton % (Auto) 8.4 % (4.5-13.0) 10/25/18 08:30 Eos % (Auto) 3.6 % (0.6-7.6) 10/25/18 08:30 Baso % (Auto) 0.5 % (0.3-1.7) 10/25/18 08:30 Nucleat RBC Rel Count 0.0 % (0.0-0.2) 10/25/18 08:30 Absolute Neuts (auto) 5.84 10^3/uL (1.70-6.50) 10/25/18 08:30 Absolute Lymphs (auto) 1.09 10^3/uL (1.00-3.00) 10/25/18 08:30 Absolute Monos (auto) 0.67 10^3/uL (0.30-0.80) 10/25/18 08:30 Absolute Eos (auto) 0.29 10^3/uL (0.03-0.40) 10/25/18 08:30 Absolute Basos (auto) 0.04 10^3/uL (0.02-0.10) 10/25/18 08:30 Absolute Nucleated RBC 0.00 10^3/uL (0-0.01) 10/25/18 08:30 Immature Gran % 0.6 % (0.0-1.1) 10/25/18 08:30 Immature Gran # 0.05 10^3/uL (0.00-0.10) 10/25/18 08:30 PT 18.2 SEC (12.0-15.0) H 10/25/18 05:04 INR 1.49 (0.83-1.16) H 10/25/18 05:04 Sodium 136 mEq/L (135-145) 10/25/18 05:04 Potassium 3.9 mEq/L (3.5-5.2) 10/25/18 05:04 Chloride 104 mEq/L (97-110) 10/25/18 05:04 Carbon Dioxide 21 mEq/l (22-31) L 10/25/18 05:04 Anion Gap 11 mEq/L (6-14) 10/25/18 05:04 BUN 20 mg/dL (7-23) 10/25/18 05:04 Creatinine 2.5 mg/dL (0.6-1.0) H 10/25/18 05:04 Estimated GFR 10/25/18 05:04 Glucose 96 mg/dL (70-100) 10/25/18 05:04 POC Glucose 166 mg/dL (70-100) H 10/25/18 12:11 Hemoglobin A1c 6.2 % (4.0-6.0) H 10/24/18 17:17 Estim Average Glucose 131 mg/dL (68-126) H 10/24/18 17:17 Calcium 7.3 mg/dL (8.5-10.4) L 10/25/18 05:04 POC Troponin I 0.02 ng/mL (0.00-0.08) 10/24/18 17:23 Troponin I 0.034 ng/mL (0.000-0.034) 10/24/18 21:24 NT-Pro-B Natriuret Pep 93454 pg/mL (0-125) H 10/24/18 17:17 A/P Assessment: SOB on admission related to fluid overload. IV Lasix given in ER once in the setting of ESRD. Her BNP was 12,000. Trop normal at 0.034. CXR showed mild Cardiomegaly, mild Pulmonary congestion, with no focal or peripheral interstitial edema. Nephrology will follow related to her fluid overload due to her ESRD. Echocardiogram showed biatrial enlargement likely related to her chronic atrial fibrillation. EF is normal at 56%. Atrial Fibrillation is chronic and she is anticoagulated on Warfarin with goal 2 to 3. She failed Eliquis, developing a DVT of the Left arm. Dialysis - Due to Renal failure due to complication of knee surgery with Antibiotic beads migrating into system. The A-V fistula for Dialysis had been placed in Left arm 3 weeks prior. She had noted increased swelling of the left arm since that time. Vascular surgery evaluating for possible need to adjust placement of fistula. Pacemaker was placed for treatment of atrial fibrillation. PLAN: Pacemaker monitoring will be established for out patient follow up. Atrial Fibrillation monitoring and management will be continued on outpatient status. She will need Referral to [facility]. We will follow along as needed during this hospitalization. Thank you for asking us to be part of this patients care.
--- NOTE | 2018-10-25 17:05 | GCON ---
[f rep st] CONSULTATION GENERAL AND VASCULAR SURGERY CONSULTATION REASON FOR CONSULT: Left upper extremity arteriovenous fistula in place with recent DVT, and now wit h significant left arm swelling. HISTORY OF PRESENT ILLNESS: The patient is a 73-year-old female, originally from [place], who recently moved here from [place] on Tuesday and presented to the emergency department complaining of shortne ss of breath after receiving dialysis. We have been asked to see her for evaluation of her left arm swelling. She reports having what appears to be a brachiocephalic left upper extremity AV fistula pl aced in [place] about 6 weeks ago. Prior to this, she had a neck catheter urgently placed for unreco gnized renal failure. Three weeks after her AV fistula surgery, she developed a DVT in that same arm , and was initially on Eliquis and then put on Coumadin. She says her arm has been swollen since mid August, but suddenly worsened in the last 24 hours. It is now heavy and difficult to lift. She i s no longer able to make fists. Her arm is heavy, but not particularly painful, and her sensation is intact. She does have a palpable radial pulse, and aside from limitations from swelling, she has go od design eng strength. The patient has a right-sided pacemaker in place. Again, she has a left-sided tunneled neck catheter in place. An ultrasound shows a patent arteriovenous fistula with no evidence of DVT with high-grad e stenosis of the left innominate vein. DICTATION ENDS HERE. /[id number]/MODL
--- NOTE | 2018-10-25 17:15 | SOAPPROG ---
JI Progress Note Assessment/Plan: Assessment: 71-YEAR-OLD FEMALE WITH CHRONIC RENAL FAILURE. RECENT THE LEFT ARM BRACHIAL CEPHALIC AV FISTULA WHICH IS FLOWING WELL HOWEVER SHE HAS MASSIVE LEFT ARM EDEMA AND SHE HAS A LEFT JUGULAR PALINDROME CATHETER INNOMINATE VEIN IS BEEN SHOWN TO HAVE A STRICTURE ON ULTRASOUND OR VENOGRAPHY ARM SWELLING IS BEEN GOING ON SINCE AUGUST BUT APPARENTLY HAS GOTTEN WORSE OVER THE LAST 2 3 DAYS PROBABLE A NOMINAL AT OBSTRUCTION SECONDARY TO STENOSIS AND A CATHETER IN PLACE WITH A HYPER FLOW SITUATION FROM THE AV FISTULA WILL LIKELY NEED TO HAVE THE CATHETER REMOVED AFTER DIALYSIS IN THE A.M. AND ATTEMPT TO PLACE CATHETER ON THE RIGHT NECK FOR DIALYSIS. IT WILL BE SOME TIME BEFORE THE ARM SWELLING IS GONE ENOUGH TO BE ABLE TO USE HER AV FISTULA WHICH APPEARS TO BE QUITE STRONG Plan: IN THE A.M. AFTER DIALYSIS PALINDROME REMOVAL AND PLACEMENT ON THE RIGHT IJ SIDE/RISKS AND OPTIONS BEEN FULLY DISCUSSED AND SHE WISHED TO PROCEED 10/25/18 17:12 Objective: Vital Signs Temp Pulse Resp BP Pulse Ox 36.8 C 71 18 142/85 H 94 10/25/18 12:00 10/25/18 12:00 10/25/18 12:00 10/25/18 12:00 10/25/18 12:00 Laboratory Results 10/25/18 08:30 10/25/18 05:04 10/24/18 10/25/18 10/26/18 05:59 05:59 05:59 Intake Total 200 Balance 200 PT 18.2 SEC (12.0-15.0) H 10/25/18 05:04 INR 1.49 (0.83-1.16) H 10/25/18 05:04 ICD10 Worksheet Patient Problems: Problems Problem Status Onset ESRD (end stage renal disease) Acute Hypoxemia Acute Swelling of left upper extremity Acute
--- NOTE | 2018-10-25 18:03 | PDMN ---
Medical Necessity Medical necessity: Change to inpt as of 10/25/18 @ 15:57, meets inpt criteria per MD order and MCG M-325, Renal Failure, Chronic, A-3 days. 73 y/o w/ESRD on HD via Cabrera cath, afib, recent LUE DVT (LUE arteriovenous fistula in place), presented w/SOB, admitted w/acute hypoxia, ESRD, and severe L arm swelling. US shows stenosis of innominate vein, possibly r/t tunneled L neck catheter. Surg consult: Pt will have HD tomorrow and then neck catheter to be removed and will require new catheter until AVF matures, complicated by R PPM w/subclavian wires. May also need IR intervention w/venoplasty and poss stent after removal of neck catheter. Est LOS>2MN for ongoing management of above.
[2018-10-25] MEDS ORDERED: ENOXAPARIN 100 MG/ML SYR SC SCH (21:00)
[2018-10-26 05:53] LABS: PLATELET COUNT 159 10^3/uL (150-400)
[2018-10-26] MEDS: LEVOTHYROXINE 175 MCG TAB PO SCH (06:22)
[2018-10-26] MEDS: INSULIN LISPRO 100 UNIT/ML SC SCH ×4 (07:44→20:21)
[2018-10-26] MEDS ORDERED: VANCOMYCIN HCL/NORMAL SALINE 250 ML IV ONE (08:00)
[2018-10-26] MEDS ORDERED: VANCOMYCIN 1 GM in NS 250 ML IV ONE ×2 (08:00→16:00)
--- NOTE | 2018-10-26 11:39 | SOAPPROG ---
JI Progress Note Assessment/Plan: Assessment/plan: 73 y/o F with chronic renal failure admitted with acute L arm swelling. US shows stricture in innominate vein. Plan for surgery today after dialysis to remove current L neck catheter and place new palindrome catheter in R IJ. Neck u/s ordered prior to surgery to assess R IJ. All risks and options discussed and pt wishes to proceed. Pt seen by Dr. De Leon. 10/26/18 11:36 Objective: Vital Signs Temp Pulse Resp BP Pulse Ox 36.6 C 70 20 142/66 H 90 L 10/26/18 04:00 10/26/18 04:00 10/26/18 04:00 10/26/18 04:00 10/26/18 04:00 Laboratory Results 10/26/18 04:50 10/26/18 04:50 PT 18.2 SEC (12.0-15.0) H 10/25/18 05:04 INR 1.49 (0.83-1.16) H 10/25/18 05:04 ICD10 Worksheet Patient Problems: Problems Problem Status Onset ESRD (end stage renal disease) Acute Hypoxemia Acute Swelling of left upper extremity Acute
[2018-10-26] MEDS: PREGABALIN 100 MG CAP PO SCH (11:41)
[2018-10-26] MEDS: HYDROCODONE/APAP 5/325 TAB PO PRN ×2 (12:01→20:10)
--- NOTE | 2018-10-26 12:17 | HOSPPROG ---
Hospitalist Progress Note Assessment/Plan: Rose is a73yo F with ESRD on HD via Cabrera catheter, atrial fibrillation, recent LUE DVT on warfarin who just moved to [place] 4 days ago presents with shortness of breath. She is from the [place] area. * left arm swelling, severe -ultrasound shows AV fistula that is widely patent -high-grade stenosis left innominate vein causing decreased outflow fro the left arm arterial venous fistula -surgery today after dialysis to remove current L neck catheter and place new palindrome catheter in R IJ. -Neck u/s ordered prior to surgery to assess R IJ. * Acute hypoxia -resolved -echo shows right atrial enlargement and left atrium is severely dilated -appreciate cardiology seeing Rose *ESRD - Failed RUE AV fistula and recently created LUE AV fistula with clot -Dialyzing via Cabrera catheter -dialysis today * Atrial fibrillation, Rate controlled -INR is subtherapeutic -resuming Coumadin this evening, pharmacy to dose *Indeterminate troponin -minimally elevated, demand ischemia from the above * Anemia: Related to renal disease. * SSS s/p pacemaker * Diabetes: SSI *plan: to go to OR today w Dr De Leon, resume Coumadin this evening. Reviewed her care w Dr De Leon, appreciate his involvement Subjective: Rose is very hopeful about her care. Her left arm has become more painful. Objective: Vital Signs Temp Pulse Resp BP Pulse Ox 36.6 C 83 20 177/88 H 91 L 10/26/18 04:00 10/26/18 12:04 10/26/18 12:04 10/26/18 12:04 10/26/18 12:04 Laboratory Results 10/26/18 04:50 10/26/18 04:50 PT 18.2 SEC (12.0-15.0) H 10/25/18 05:04 INR 1.49 (0.83-1.16) H 10/25/18 05:04 - Physical Exam Constitutional: appears nourished, obese, uncomfortable Eyes: PERRL Ears, Nose, Mouth, Throat: hearing normal Cardiovascular: irregularly irregular Respiratory: no respiratory distress Gastrointestinal: normoactive bowel sounds Skin: warm, other (left arm w signigicant swelling, skin tight) Neurologic: AAOx3 Psychiatric: interacting appropriately ICD10 Worksheet Patient Problems: Problems Problem Status Onset ESRD (end stage renal disease) Acute Hypoxemia Acute Swelling of left upper extremity Acute
[2018-10-26] MEDS ORDERED: NA BICARBONATE 50 MEQ/50 ML VIAL ONE (14:03)
[2018-10-26] MEDS ORDERED: HEPARIN 50,000 UNIT/10 ML VIAL ONE (14:03)
[2018-10-26] MEDS ORDERED: BUPIVACAINE 0.5% 30 ML SDV ONE (14:03)
[2018-10-26] MEDS ORDERED: LIDOCAINE 1% 300 MG/30 ML SDV ONE (14:03)
[2018-10-26] MEDS ORDERED: LR 1,000 ML IV ONE (15:22)
[2018-10-26] MEDS ORDERED: NS 1,000 ML IV ONE (15:47)
[2018-10-26] MEDS ORDERED: WARFARIN SODIUM 5 MG TAB PO ONE (16:00)
--- NOTE | 2018-10-26 16:15 | PDANEPAE ---
ANE History of Present Illness here for palindrome cath placemement ANE Past Medical History - Cardiovascular History Hx Hypertension: Yes Hx Arrhythmias: Yes Hx Chest Pain: No Hx Coronary Artery / Peripheral Vascular Disease: No Hx CHF / Valvular Disease: Yes Hx Palpitations: No - Pulmonary History Hx COPD: No Hx Asthma/Reactive Airway Disease: No Hx Recent Upper Respiratory Infection: No Hx Oxygen in Use at Home: No Hx Sleep Apnea: No Sleep Apnea Screening Result - Last Documented: Negative - Endocrine History Hx Diabetes: Yes - Renal History Hx Renal Disorders: Yes Renal History Comment: ESRD req HD - Liver History Hx Hepatic Disorders: No - Neurological & Psychiatric Hx Hx Neurological and Psychiatric Disorders: No - Chronic Pain History Chronic Pain: No ANE Review of Systems Review of systems is: negative Review of Systems: - Exercise capacity Exercise capacity: <4 METS ANE Patient History - Allergies Allergies/Adverse Reactions: morphine Allergy (Verified 10/24/18 13:47) Penicillins Allergy (Verified 10/24/18 13:47) Sulfa (Sulfonamide Antibiotics) Allergy (Verified 10/24/18 13:47) - Home Medications Home Medications: Glimepiride [Amaryl 1 MG (*)] 1 mg PO DAILY 10/24/18 [Last Taken 10/24/18] Herbals/Supplements -Info Only 1 ea PO DAILY 10/24/18 [Last Taken Unknown] Hydrocodone/APAP 5/325 [Eastern 5/325 (*)] 1 tab PO Q6 PRN 10/24/18 [Last Taken Unknown] Levothyroxine [Synthroid 175 mcg (*)] 175 mcg PO DAILY06 10/24/18 [Last Taken 07:00] Pregabalin [Lyrica 100mg (*)] 100 mg PO DAILY 10/24/18 [Last Taken 10/24/18] Warfarin Sodium [Coumadin 5MG (*)] 2.5 mg PO DAILY@17 10/24/18 [Last Taken 10/23] - NPO status NPO Status: no food or drink >8 hours NPO Since - Liquids (Date): 10/25/18 NPO Since - Liquids (Time): 23:59 NPO Since - Solids (Date): 10/25/18 NPO Since - Solids (Time): 18:00 - Smoking Hx Smoking Status: Never smoked - Alcohol Use Alcohol Use: None ANE Labs/Vital Signs - Labs Result Diagrams: 10/26/18 04:50 10/26/18 04:50 - Vital Signs Vital Signs: reviewed preoperatively; see RN documention for details Blood Pressure: 174/143 Heart Rate: 70 Respiratory Rate: 16 O2 Sat (%): 92 Height: 167.64 cm Weight: 100.5 kg ANE Physical Exam - Airway Neck exam: FROM Mallampati Score: Class 1 Mouth exam: dentures - Pulmonary Pulmonary: no respiratory distress - Cardiovascular Cardiovascular: regular rate and rhythym - ASA Status ASA Status: III ANE Anesthesia Plan Anesthesia Plan: GA w LMA
[2018-10-26] MEDS ORDERED: ONDANSETRON 4 MG/2 ML VIAL IVP PRN (16:33)
[2018-10-26] MEDS ORDERED: NALOXONE HCL 0.4 MG/ML INJ IVP PRN (16:33)
[2018-10-26] MEDS ORDERED: ALBUTEROL 3 ML DEYVIAL IH PRN (16:33)
[2018-10-26] MEDS ORDERED: PROPOFOL/EMULSION 500 MG/50 ML BOTTLE IV ONE (16:38)
[2018-10-26] MEDS ORDERED: fentaNYL 100 MCG/2 ML INJ ONE ×3 (16:43→19:05)
[2018-10-26] MEDS ORDERED: ONDANSETRON 4 MG/2 ML VIAL ONE (17:11)
--- NOTE | 2018-10-26 17:15 | SOAPPROG ---
JI Progress Note Assessment/Plan: Assessment: ESRD, HD earlier today central vascular obstruction of LUE. possibly due to HD cath possibly due to 10 years of pacemaker wire on the left Plan: To OR today to move HD cath to the R side, (same side as her pacemaker) will need to investigate L side vascular obstruction Very much appreciate Dr. De Leon's help with Rose has outpatient HD spot at [facility] HD unit 10/26/18 17:11 Subjective: spirits good daughter at bedside, all questions answered no cp, still with SOB (just [place] from [place]) may be some altitude issues in addition to volume appetite OK no nausea or vomiting no sig pain today slept OK frustrated about her arm Objective: Vital Signs Temp Pulse Resp BP Pulse Ox 36.8 C 70 16 174/143 H 92 10/26/18 15:27 10/26/18 16:32 10/26/18 16:32 10/26/18 16:32 10/26/18 16:32 Laboratory Results 10/26/18 04:50 10/26/18 04:50 PT 18.2 SEC (12.0-15.0) H 10/25/18 05:04 INR 1.49 (0.83-1.16) H 10/25/18 05:04 Physical Exam - Physical Exam General Appearance: alert, obese Neck: normal inspection Respiratory: rales, No rhonchi, No wheezing Cardiac/Chest: edema, systolic murmur, No friction rub Abdomen: normal bowel sounds, non-tender, soft Skin: warm/dry Extremities: swelling Neuro/Psych: alert, normal mood/affect, oriented x 3 ICD10 Worksheet Patient Problems: Problems Problem Status Onset ESRD (end stage renal disease) Acute Hypoxemia Acute Swelling of left upper extremity Acute
[2018-10-26] MEDS ORDERED: IOPAMIDOL (ISOVUE-M 300) 15 ML VIAL ONE ×2 (17:29→17:34)
[2018-10-26] MEDS ORDERED: HEPARIN 10,000 UNIT/10 ML MDV (1,000 UNIT/ML) ONE (17:30)
--- NOTE | 2018-10-26 17:42 | PDCARPN ---
Cardiology Progress Note Chief Complaint: Hypoxia, ESRD Assessment/Plan: Assessment: Hypoxia likely related to recent move to [place] from [place] 10/21/18. Once on oxygen she has kept her oxygen sat up to 90. ESRD - resulted from a knee surgery in [place] that Abx beads were placed and inappropriately released causing Kidney failure. She had a A-V Fistula placed 6 weeks ago in left arm. Her arm now is significantly enlarged. Dr De Leon with vascular surgery is following her. She is to have surgery today to replace the fistula. Embolic clot to her subclavian in [place]. She was on Eliquis at the time, and was then switched to Warfarin for anticoagulation. [facility] Pacemaker--- She will be set up for pacer monitoring through [facility] Plan: Will sign off at this time. Call if further cardiac needs arise. 10/26/18 17:32 Subjective: My left arm hurts. Ready to go for surgery. Reviewed/Discussed With: family, multidisciplinary team Time Spent with Patient: greater than 25 minutes Time Spent with Patient: Greater than 25 minutes spent on this patients care, greater than 50% of time spent counseling, educating, and coordinating care regarding the above mentioned plan. Objective: Vital Signs (8 Hrs) Temp Pulse Resp BP Pulse Ox 10/26/18 16:32 70 16 174/143 H 92 10/26/18 15:27 36.8 C 70 16 174/143 H 92 10/26/18 12:04 83 20 177/88 H 91 L Intake/Output (24 Hrs) 10/25/18 10/26/18 10/27/18 05:59 05:59 05:59 Other: Weight 100.5 kg 100.5 kg Intake Quantity Yes Sufficient Number of Voids Toilet 0 Result Diagrams: 10/26/18 04:50 10/26/18 04:50 Telemetry: Off monitor for transport to surgery. - Physical Exam Constitutional: no apparent distress Cardiovascular: regular rate and rhythm, no rubs, no gallops, systolic murmur Respiratory: other (No difficulty breathing) Skin: warm Neurologic: AAOx3 Psychiatric: cooperative, interactive ICD10 Worksheet Patient Problems: Problems Problem Status Onset Swelling of left upper extremity Acute Hypoxemia Acute ESRD (end stage renal disease) Acute
[2018-10-26] MEDS ORDERED: POVIDONE-IODINE 30 GM OINTTUBE TP ONE (18:25)
[2018-10-26] MEDS: fentaNYL 100 MCG/2 ML INJ IVP PRN ×3 (18:46→19:10)
--- NOTE | 2018-10-26 18:46 | POSTANESTH ---
Post Anesthetic Evaluation Cardiovascular Status: Normal, Stable Respiratory Status: Normal, Stable Level of Consciousness/Mental Status: Mildly Sleepy, Arousable Pain Control: Inadeq, Add Tx Required Nausea/Vomiting Control: Adequate, Prn Tx Ordered Complications Possibly Related to Anesthesia: None Noted
--- NOTE | 2018-10-26 18:58 | POSTOPPROG ---
Post Op Note Date of Operation: 10/26/18 Surgeon: Yaya De Leon Anesthesiologist: lena Anesthesia: GET(General Endotracheal) Pre-op Diagnosis: renal failure/ swollen left arm Post-op Diagnosis: same Indication: progressive arm swelling Procedure: rt ij palindrome tunnelled cath/ removal left cathwith venogram Findings: tortuous innominate vein Inf/Abcess present in the surg proc area at time of surgery?: No Depth: Deep Incisional (Fascial) EBL: 50-100 Complications: 0 Specimen(s): 0
[2018-10-26] MEDS: WARFARIN SODIUM 2.5 MG TAB PO SCH (20:24)
[2018-10-27] MEDS: OXYCODONE/APAP 5/325 TAB PO PRN ×2 (00:33→05:08)
[2018-10-27] MEDS: LEVOTHYROXINE 175 MCG TAB PO SCH (05:08)
[2018-10-27 05:39] LABS: INR 1.38 (0.83-1.16); PLATELET COUNT 145 10^3/uL (150-400); PROTIME(PATIENT) 17.1 SEC (12.0-15.0)
[2018-10-27] MEDS: HYDROCODONE/APAP 5/325 TAB PO PRN ×3 (08:38→20:16)
[2018-10-27] MEDS: PREGABALIN 100 MG CAP PO SCH (10:05)
--- NOTE | 2018-10-27 11:56 | SOAPPROG ---
JI Progress Note Assessment/Plan: Assessment/plan: 73 y/o F with chronic renal failure admitted with acute L arm swelling. US shows stricture in innominate vein. Plan for surgery today after dialysis to remove current L neck catheter and place new palindrome catheter in R IJ. Neck u/s ordered prior to surgery to assess R IJ. All risks and options discussed and pt wishes to proceed. Pt seen by Dr. De Leon. 10/26/18 11:36 10/27/18 11:53 Now s/p removal L neck cath and placement R neck cath yesterday. Ok to use new tunneled neck catheter for dialysis tomorrow. Keep RUE elevated as much as possible. S: Reports decrease in edema in R arm. Pain and numbness/tingling is improved as well. O: Alert Afebrile No increased WOB RUE: diffuse edema present, but improved from yesterday. +radial pulse. Full strength and sensation in hand. Objective: Vital Signs Temp Pulse Resp BP Pulse Ox 36.6 C 75 22 H 122/63 H 91 L 10/27/18 08:00 10/27/18 08:00 10/27/18 08:00 10/27/18 08:00 10/27/18 08:00 Laboratory Results 10/27/18 04:45 10/27/18 04:45 10/26/18 10/27/18 10/28/18 05:59 05:59 05:59 Intake Total 600 Output Total 200 Balance 400 PT 17.1 SEC (12.0-15.0) H 10/27/18 04:45 INR 1.38 (0.83-1.16) H 10/27/18 04:45 ICD10 Worksheet Patient Problems: Problems Problem Status Onset ESRD (end stage renal disease) Acute Hypoxemia Acute Swelling of left upper extremity Acute
[2018-10-27] MEDS: INSULIN LISPRO 100 UNIT/ML SC SCH ×4 (14:03→18:29)
--- NOTE | 2018-10-27 14:58 | HOSPPROG ---
Hospitalist Progress Note Assessment/Plan: Rose is a73yo F with ESRD on HD via Cabrera catheter, atrial fibrillation, recent LUE DVT on warfarin who just moved to [place] 4 days ago presents with shortness of breath. She is from the [place] area. First encounter, chart reviewed. * left arm swelling, severe -ultrasound shows AV fistula that is widely patent -high-grade stenosis left innominate vein causing decreased outflow from the left arm arterial venous fistula -surgery to remove L neck catheter and place new palindrome catheter in R IJ. * Acute hypoxia -resolved -echo shows right atrial enlargement and left atrium is severely dilated -appreciate cardiology seeing Rose *ESRD - Failed RUE AV fistula and recently created LUE AV fistula with clot - Dialyzing via Cabrera catheter - dialysis tomorrow * Atrial fibrillation, Rate controlled -INR is subtherapeutic -resuming Coumadin, pharmacy to dose *Indeterminate troponin -minimally elevated, demand ischemia from the above * Anemia: -Related to renal disease. * SSS s/p pacemaker * Diabetes: -SSI *plan: -HD in am -possible DC tomorrow after HD Subjective: Feeling better today. Quaestions answered. Happy with care. Objective: Vital Signs Temp Pulse Resp BP Pulse Ox 36.8 C 70 18 116/67 96 10/27/18 12:00 10/27/18 12:00 10/27/18 12:00 10/27/18 12:00 10/27/18 12:00 Laboratory Results 10/27/18 04:45 10/27/18 04:45 10/26/18 10/27/18 10/28/18 05:59 05:59 05:59 Intake Total 600 Output Total 200 Balance 400 PT 17.1 SEC (12.0-15.0) H 10/27/18 04:45 INR 1.38 (0.83-1.16) H 10/27/18 04:45 - Physical Exam Constitutional: not in pain, chronically ill appearing, obese Eyes: PERRL, anicteric sclera, EOMI Ears, Nose, Mouth, Throat: moist mucous membranes, hearing normal, ears appear normal Cardiovascular: edema, No JVD, No tachycardia Respiratory: no respiratory distress, no rales or rhonchi, reduced air movement Gastrointestinal: normoactive bowel sounds, No tenderness, No ascites Skin: warm, no rashes or abrasions, No mottled Musculoskeletal: normal joint ROM, no joint effusions, generalized weakness Neurologic: AAOx3 Psychiatric: interacting appropriately, not anxious, not encephalopathic, thought process linear ICD10 Worksheet Patient Problems: Problems Problem Status Onset Swelling of left upper extremity Acute Hypoxemia Acute ESRD (end stage renal disease) Acute
--- NOTE | 2018-10-27 16:19 | ASMTCMCOM ---
CM Note CM Note Notes: Pt moved here from [place], she gets dialysis T/Th/ Tue. She developed a left arm swelling, attempt was made to access a RUE but this failed. Pt getting dialyzed via Cabrera, will get dialysis Tuesday and possibly dc home in the afternoon. Pt is otherwise independent, no therapies ordered and will dc home w/support of family. DC Plan: Independent Date Signed: 10/27/2018 04:18 PM Electronically Signed By:Vale Singh RN
--- NOTE | 2018-10-27 16:21 | SOAPPROG ---
SOAP Progress Note Assessment/Plan: Assessment/Plan: ESRD: on HD TTS at [facility]. - Will do HD tomorrow per routine. Hypervolemia: catheter has been moved and pt feels swelling is already improving. Will modulate fluid removal with HD. Anemia: Hgb at goal, no need for inpatient epo. KATERINA: will check phos with am labs. Subjective: No acute events overnight. Pt had catheter moved yesterday. She states that L arm is still swollen but is better than before. She has no other complaints today. Objective: Vital Signs Temp Pulse Resp BP Pulse Ox 36.8 C 70 18 116/67 95 10/27/18 15:23 10/27/18 15:23 10/27/18 15:23 10/27/18 12:00 10/27/18 15:23 Laboratory Results 10/27/18 04:45 10/27/18 04:45 10/26/18 10/27/18 10/28/18 05:59 05:59 05:59 Intake Total 600 Output Total 200 Balance 400 PT 17.1 SEC (12.0-15.0) H 10/27/18 04:45 INR 1.38 (0.83-1.16) H 10/27/18 04:45 General: alert and oriented, no acute distress Eyes: EOMI, PERRL OP: Clear CV: RRR Resp: nonlabored respirations Abd: Soft, NT/ND Ext: +3 edema LUE Neuro: CN II-XII Grossly intact, no asterixis Psych: cooperative Access: RIJ tunneled catheter ICD10 Worksheet Patient Problems: Problems Problem Status Onset ESRD (end stage renal disease) Acute Hypoxemia Acute Swelling of left upper extremity Acute
[2018-10-27] MEDS: WARFARIN SODIUM 2.5 MG TAB PO SCH (17:17)
[2018-10-28] MEDS: LEVOTHYROXINE 175 MCG TAB PO SCH (05:08)
[2018-10-28 05:50] LABS: INR 1.37 (0.83-1.16)
[2018-10-28] MEDS: INSULIN LISPRO 100 UNIT/ML SC SCH ×3 (08:17→17:46)
[2018-10-28] MEDS: HYDROCODONE/APAP 5/325 TAB PO PRN (09:19)
--- NOTE | 2018-10-28 11:54 | SOAPPROG ---
SOHARSHAL Progress Note Assessment/Plan: Assessment/Plan: 73 y/o F with h/o ESRD 2/2 to DM who presented with SOB, volume overload and arm swelling. ESRD: on HD TTS at [facility]. - HD today, will UF up to 2.5L Hypervolemia: Diet discussed. Will continue to UF as outpatient. Access: Port removed and swelling starting to improve. Needs f/u for AVF with Dr. De Leon. Anemia: Hgb at goal, no need for inpatient epo. May be discharged from renal perspective. Please contact if ?'s. Matthias Cavanaugh DO #[phone] [facility] 10/28/18 12:57 Subjective: Patient seen on dialysis. Having some cramping and not wanting to pull up to 3L. Lives independently but has daughter who helps. Objective: Vital Signs Temp Pulse Resp BP Pulse Ox 36.9 C 70 15 128/63 H 81 L 10/28/18 07:22 10/28/18 07:22 10/28/18 07:22 10/28/18 07:22 10/28/18 08:18 Laboratory Results 10/28/18 04:54 10/28/18 04:54 10/27/18 10/28/18 10/29/18 05:59 05:59 05:59 Intake Total 600 350 Output Total 200 Balance 400 350 PT 17.0 SEC (12.0-15.0) H 10/28/18 04:54 INR 1.37 (0.83-1.16) H 10/28/18 04:54 Physical Exam - Physical Exam General Appearance: WD/WN, alert, no apparent distress EENT: PERRL/EOMI Neck: non-tender, full range of motion Respiratory: chest non-tender, lungs clear Cardiac/Chest: regular rate, rhythm, edema Abdomen: normal bowel sounds, non-tender, soft Skin: normal color Extremities: normal range of motion, swelling, other (L arm swelling, aVF intact ) Neuro/Psych: no motor/sensory deficits, alert, normal mood/affect ICD10 Worksheet Patient Problems: Problems Problem Status Onset ESRD (end stage renal disease) Acute Hypoxemia Acute Swelling of left upper extremity Acute
[2018-10-28] MEDS ORDERED: HEPARIN 50,000 UNIT/10 ML VIAL ONE (13:28)
--- NOTE | 2018-10-28 13:52 | HOSPPROG ---
Hospitalist Progress Note Assessment/Plan: Rose is a73yo F with ESRD on HD via Cabrera catheter, atrial fibrillation, recent LUE DVT on warfarin who just moved to [place] 4 days ago presents with shortness of breath. She is from the [place] area. * left arm swelling, severe -Port removed and swelling starting to improve. Needs f/u for AVF with Dr. De Leon. -high-grade stenosis left innominate vein causing decreased outflow from the left arm arterial venous fistula -surgery to remove L neck catheter and place new palindrome catheter in R IJ. * Acute hypoxia -conts, ambulate -echo shows right atrial enlargement and left atrium is severely dilated -appreciate cardiology seeing Rose *ESRD - Failed RUE AV fistula and recently created LUE AV fistula with clot - Dialyzing via Cabrera catheter - dialysis today * Atrial fibrillation, Rate controlled -INR is subtherapeutic -resuming Coumadin, pharmacy to dose *Indeterminate troponin -minimally elevated, demand ischemia from the above * Anemia: -Related to renal disease. * SSS s/p pacemaker * Diabetes: -SSI *plan: -HD in am -possible DC tomorrow Subjective: Feeling tired. No pain. Left arm feels better. Objective: Vital Signs Temp Pulse Resp BP Pulse Ox 36.9 C 70 15 128/63 H 81 L 10/28/18 07:22 10/28/18 07:22 10/28/18 07:22 10/28/18 07:22 10/28/18 08:18 Laboratory Results 10/28/18 04:54 10/28/18 04:54 10/27/18 10/28/18 10/29/18 05:59 05:59 05:59 Intake Total 600 350 Output Total 200 Balance 400 350 PT 17.0 SEC (12.0-15.0) H 10/28/18 04:54 INR 1.37 (0.83-1.16) H 10/28/18 04:54 - Physical Exam Constitutional: chronically ill appearing, obese Eyes: PERRL, anicteric sclera Ears, Nose, Mouth, Throat: moist mucous membranes, hearing normal Cardiovascular: edema, No JVD Respiratory: no respiratory distress, reduced air movement Gastrointestinal: No tenderness, No ascites Skin: warm, normal color Musculoskeletal: no muscle tenderness, generalized weakness Neurologic: AAOx3 Psychiatric: interacting appropriately, not anxious, not encephalopathic ICD10 Worksheet Patient Problems: Problems Problem Status Onset ESRD (end stage renal disease) Acute Hypoxemia Acute Swelling of left upper extremity Acute
[2018-10-28] MEDS: PREGABALIN 100 MG CAP PO SCH (14:08)
[2018-10-28] MEDS: OXYCODONE/APAP 5/325 TAB PO PRN ×2 (14:13→20:07)
[2018-10-28] MEDS: WARFARIN SODIUM 2.5 MG TAB PO SCH (17:14)
[2018-10-28] MEDS ORDERED: WARFARIN SODIUM 1 MG TAB PO ONE (17:45)
[2018-10-29] MEDS: HYDROCODONE/APAP 5/325 TAB PO PRN ×2 (00:18→08:36)
[2018-10-29] MEDS: LEVOTHYROXINE 175 MCG TAB PO SCH (05:32)
[2018-10-29 06:19] LABS: INR 1.3 (0.83-1.16); PROTIME(PATIENT) 16.4 SEC (12.0-15.0)
[2018-10-29] MEDS: PREGABALIN 100 MG CAP PO SCH (08:37)
[2018-10-29] MEDS: INSULIN LISPRO 100 UNIT/ML SC SCH ×2 (09:00→13:01)
--- NOTE | 2018-10-29 09:39 | PDHOMEO2F ---
Home Oxygen Face to Face Home Orders: I certify that a physician or a nurse practitioner or physician's assistant program director has had a [id number] encounter with this patient on the date of this order due to the diagnosis listed, which relates to the primary reason the patient requires home oxygen. Alternative treatments have been tried, or considered, and deemed ineffective. It is anticipated that supplemental oxygen will result in improvement with treatment. Home oxygen qualifying diagnosis: COPD SpO2 on room air (%): 81 Frequency of home oxygen needed: continuous Home oxygen liters per minute: 2 Home oxygen delivery device: nasal cannula Concentrator: Yes E-tanks for mobility and back up: Yes If ordering portable O2, is the patient mobile in the home?: Yes I certify that, based on these findings, the home oxygen is medically necessary for this patient for the following length of time. Length of time home oxygen needed: 3 months
[2018-10-29 12:05] VITALS: BP 127/79
--- NOTE | 2018-10-29 15:57 | ASMTDCNOTE ---
Case Management Discharge Discharge Order Complete? Answers: No Patient to Obtain Answers: via Family Medications Transportation Arranged Answers: Family/Friends Discharge Comments Notes: CM met with patient prior to discharge. Patient shares she is ready to go home as it has been a whirlwind moving to [place], her daughter who she moved to live near is an radio interference investigator and is currently out of town, her other daughter is in town with her and will be transporting her home and will be supporting her discharge. Patient to follow up with Dr. Selina Alston for Primary Care given [phone] and is is connected to [facility] [place], 8:30am. Patient discussed concern around Warfarin treatment, we discussed the importance of scheduling with Dr. Alston's office. CELIO LM for Oxyacetylene Torch Operator, , to inform the office the patient will be calling to schedule an appointment within the next few days as recommended. CM delivered and patient signed IM receipt, CM placed in back of chart. CM available to follow if any further CM needs arise. Date Signed: 10/29/2018 03:56 PM Electronically Signed By:Naomy Sheldon
--- NOTE | 2018-10-29 18:48 | GDS ---
[f rep st] DISCHARGE SUMMARY DISCHARGE DIAGNOSES: 1. Severe left arm swelling. 2. Acute hypoxia. 3. End-stage renal disease. 4. Atrial fibrillation. 5. Indeterminate troponin. 6. Anemia. 7. Sick sinus syndrome with pacer. 8. Diabetes. CONSULTATIONS: Dr. De Leon. STUDIES AND PROCEDURES DONE: 1. Port removal with. 2. Placement of new catheter. PHYSICAL EXAM: GENERAL: Patient is alert. VITAL SIGNS: Afebrile at 36.8. Pulse is 72. Respirato ry rate is 15. Blood pressure is 127/79. She is saturating 81% on room air, 98% on 2 L. I have see n, evaluated patient on the day of discharge. HOSPITAL COURSE: The patient is a 73-year-old female sent from dialysis. She was evaluated and diag nosed with: 1. Severe left arm swelling. Patient did have a port removed during this hospitalization. Her swel ling has started to significantly improve. She did have stenosis that was decreasing the outflow and has resolved. A new right catheter has been placed for hemodialysis. 2. Acute hypoxemia. Patient just moved from [place] approximately 6 days ago. She is requiring con tinuous supplemental oxygen, will be discharged home with oxygen therapy. 3. End-stage renal disease. She will continue hemodialysis in the outpatient setting as previously ordered. 4. Atrial fibrillation. This is rate controlled. Her INR is subtherapeutic. She will have increas ed dose of Coumadin at the time of disposition and followup with INR evaluations. 5. Indeterminate troponin. This is minimally elevated. 6. Anemia. This is in the setting of chronic renal disease. 7. Diabetes, stable. DISPOSITION: She will be discharged home with supplemental oxygen and her family. There are no pend ing studies. DISCHARGE MEDICATIONS: Please refer to EMR form. Provided a prescription for Coumadin 1 mg daily. FOLLOWUP: INR check on 11/01/2018, with followup with a primary care physician as well as Dr. Galindo De Leon and hemodialysis. I spent greater than 35 minutes in the care, coordination, and management of this patient's dispositi on. /[id number]/MODL
--- NOTE | 2018-11-08 23:18 | GOP ---
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 ANESTHESIOLOGIST: Dr. Gaines. 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 PROCEDURE PERFORMED: 1. Right internal jugular Palindrome tunneled catheter placement with fluoroscopic guidance and ultrasound guidance. 2. Removal of left Palindrome subclavian catheter. FINDINGS: GOOD POSITION AND FLOW OF THE NEW PALINDROME ESTIMATED BLOOD LOSS: Less than 100 cc. DESCRIPTION OF PROCEDURE: The patient was taken to the operating room where she received satisfactory general endotracheal anesthesia by Dr. Gaines. She was placed in the supine position, and prepped and draped in the usual sterile fashion. Using ultrasound guidance, the right IJ vein was cannulated. A guidewire was passed. A Palindrome catheter was brought in through a separate stab incision in the anterior chest wall and tunneled up over the clavicle and introduced through the introducer sheath and dilator system into the right atrium. Good backflow was present. The catheter was flushed with heparin and saline and instilled with the appropriate amount of 5000 units/cc heparin. The catheter was secured to the exit site with 3-0 Prolene sutures. The entrance site was closed with 3-0 Prolene sutures. Wounds were infiltrated with 0.5% Marcaine. Attention was then turned to the other Palindrome catheter. Dissection was carried down through the subcutaneous tissue and the catheter was exposed. The cuff was dissected free. The catheter was then removed. There was quite significant backflow because of the venous hypertension. The catheter tunnel was closed with interrupted 3-0 Prolene sutures and the incision was closed with 3-0 Prolene sutures. The wounds were dressed. She tolerated the procedure well. She was taken to the recovery room in good condition. There were no complications. /[id number]/MODL MTDD
== END 2018-10-29 15:53 | disposition home or self-care (01) | DRG 252 ==
LOC: F3E 18:36 → OBSVTOIN 10-25 15:57
PROVIDERS: ADMIT Internal Medicine; ATTEND Internal Medicine
PROC: 5A1D70Z Performance of Urinary Filtration, Intermittent, Less than 6 Hours Per Day (ICD-10-PCS; 2018-10-26)
PROC: 05PY03Z Removal of Infusion Device from Upper Vein, Open Approach (ICD-10-PCS; principal; 2018-10-26 15:00)
PROC: 02H633Z Insertion of Infusion Device into Right Atrium, Percutaneous Approach (ICD-10-PCS; principal; 2018-10-26 15:00)
DX: I87.1 Compression of vein (principal); I12.0 Hypertensive chronic kidney disease with stage 5 chronic kidney disease or end stage renal disease; N18.6 End stage renal disease; R09.02 Hypoxemia; I48.91 Unspecified atrial fibrillation; D63.1 Anemia in chronic kidney disease; Z95.0 Presence of cardiac pacemaker; E11.9 Type 2 diabetes mellitus without complications; E03.9 Hypothyroidism, unspecified; Z99.2 Dependence on renal dialysis; Z99.81 Dependence on supplemental oxygen; Z85.3 Personal history of malignant neoplasm of breast; Z88.0 Allergy status to penicillin; Z79.01 Long term (current) use of anticoagulants; Z86.718 Personal history of other venous thrombosis and embolism
CPT/HCPCS: 84484-ER; 96374; 97116-GP; 97161-GP; C1750; C1769; G0378; J1170; J1642; J1644; J1815; J1940; J2405; J2704; J3010; J3370; Q9967